=== PATIENT | male | born 1935 | race Native Hawaiian/Other Pacific Islander ===

== ENCOUNTER 2021-07-01 14:56 | Outpatient (CLI) | payer OTHER, MEDICARE | END 2021-07-01 21:09 | disposition home or self-care (01) | LOC: RAD 14:56 | PROVIDERS: ATTEND Internal Medicine | DX: R05.3 Chronic cough (principal) ==

== ENCOUNTER → 2022-02-26 | Emergency (ER) | payer OTHER, MEDICARE ==
[~2022-02-26] VITALS: Ht 175.3 cm; Wt 91.6 kg
[2022-02-26 19:05] VITALS: BP 140/77; TEMP 98.2
[2022-02-26 20:05] LABS: PLATELET COUNT 232 K/uL (142-355)
[2022-02-26 20:06] LABS: POTASSIUM 4.9 mmol/L (3.6-5.2)
== END ==
LOC: ED 19:02
PROVIDERS: Family Medicine
DX: R22.42 Localized swelling, mass and lump, left lower limb (principal); R07.89 Other chest pain; Z53.29 Procedure and treatment not carried out because of patient's decision for other reasons; R06.02 Shortness of breath
CPT/HCPCS: 36415; 80053; 82550; 83880; 84484; 85027; 85379; 85610; 85730; 90715; 93005; 99283

== ENCOUNTER 2022-04-27 10:57 | Outpatient (CLI) | payer OTHER, MEDICARE | END 2022-04-27 19:16 | disposition home or self-care (01) | LOC: RAD 10:57 | PROVIDERS: ATTEND Internal Medicine | DX: Z13.820 Encounter for screening for osteoporosis (principal); M81.0 Age-related osteoporosis without current pathological fracture ==